=== PATIENT | female | born 1980 | race Caucasian/White ===

== ENCOUNTER 2017-09-05 13:36 | Day surgery (SDC) | payer OTHER ==
[~2017-09-05] VITALS: Ht 157.5 cm; Wt 93.0 kg
[2017-09-05] MEDS ORDERED: PRENATAL + DHA1 EAC1 (13:47)
== END 2017-09-05 22:00 | disposition home or self-care (01) ==
LOC: ER 13:36 → SEC-K 17:36 → O/R 17:36 → CIR.AMB 19:45 → SEC-K 22:44 → O/R 22:44
DX: O02.1 Missed abortion (principal); Z3A.13 13 weeks gestation of pregnancy; N39.0 Urinary tract infection, site not specified

== ENCOUNTER 2018-11-24 01:30 | Inpatient (IN) | payer OTHER ==
[~2018-11-24] VITALS: Ht 157.5 cm; Wt 111.6 kg
[~2018-11-24 01:30] MED LIST: PRENATAL + DHA1 EAC1
[2018-11-24] MEDS ORDERED: AMPICILLIN TRI500 MG PO (03:53)
== END 2018-11-27 16:51 | disposition home or self-care (01) | DRG 806 ==
LOC: LDR 01:30 → OB/GYN 01:30
PROVIDERS: ADMIT Obstetrics & Gynecology
PROC: 10E0XZZ Delivery of Products of Conception, External Approach (ICD-10-PCS; principal; 2018-11-24)
PROC: 0HQ9XZZ Repair Perineum Skin, External Approach (ICD-10-PCS; 2018-11-24)
PROC: 3E033VJ Introduction of Other Hormone into Peripheral Vein, Percutaneous Approach (ICD-10-PCS; 2018-11-24)
PROC: 4A1HXCZ Monitoring of Products of Conception, Cardiac Rate, External Approach (ICD-10-PCS; 2018-11-24)
DX: O70.0 First degree perineal laceration during delivery (principal); O87.2 Hemorrhoids in the puerperium; Z37.0 Single live birth; Z3A.39 39 weeks gestation of pregnancy; O90.89 Other complications of the puerperium, not elsewhere classified; N39.498 Other specified urinary incontinence